=== PATIENT | female | born 1995 | race Caucasian/White ===

== ENCOUNTER 2017-02-07 00:55 | Emergency (ER) | payer BC ==
[~2017-02-07] VITALS: Ht 162.6 cm; Wt 83.9 kg
[2017-02-07 01:00] VITALS: BP 136/82
--- NOTE | 2017-02-07 01:57 | NUR ---
22Y/F PRESENTS TO ER C/O N/V/D SINCE 8PM YESTERDAY. NKA, NO PMH. PT STATES HE HAS CONTROL IMPLANT IN ARM. NO VOMITING NOTED SINCE IN ER BED, ABD IS ROUND, SOFT, TENDER TO UPPER QUADRANTS, ACTIVE BS X4. PT DENIES NEW FOODS IN DIET. MOTHER STATES SHE CALLED NURSE LINE AND WAS ADVISED TO COME TO ER FOR FLUIDS. PT HAS WARM, DRY, PINK SKIN, MOIST MUCUS MEMBRANES. PT IN BED, MOTHER AT BEDSIDE, ER MD AWARE OF PT STATUS.
[2017-02-07] MEDS ORDERED: NACL 0.9% 1,000 ML IV ONE (02:30)
[2017-02-07] MEDS ORDERED: ONDANSETRON 4 MG/2 ML VIAL IVP ONE (02:30)
[2017-02-07] MEDS ORDERED: KETOROLAC 30 MG/ML VIAL IVP ONE (02:30)
[2017-02-07 04:08] VITALS: BP 112/60
--- NOTE | 2017-02-07 04:09 | NUR ---
Patient discharged with v/s stable. Written and verbal after care instructions given and explained. Patient alert, oriented and verbalized understanding of instructions. Ambulatory with steady gait. All questions addressed prior to discharge. ID band removed. Patient advised to follow up with PMD. Opportunity to ask questions provided and answered.
== END 2017-02-07 04:09 | disposition home or self-care (01) ==
LOC: MED 00:55
DX: A08.4 Viral intestinal infection, unspecified (principal); E86.0 Dehydration
CPT/HCPCS: 96361; 96374; 96375; 99284; J1885; J2405; J7030

== ENCOUNTER 2023-07-02 18:46 | Emergency (ER) | payer BC, OTHER ==
[~2023-07-02] VITALS: Ht 160 cm; Wt 86.2 kg
[2023-07-02 18:54] VITALS: BP 126/59; PULSE 112; RESP 18; TEMP 98.3; O2SAT 98
[2023-07-02 19:44] LABS: BASOPHILS % (AUTO) 0.3 % (0.0-2.0); EOSINOPHILS % (AUTO) 0.2 % (0.0-4.0); HEMATOCRIT 40.8 % (36-48); HEMOGLOBIN 14.1 g/dL (12.0-16.0); LYMPHOCYTES # (AUTO) 0.8 K/uL (2.5-16.5); LYMPHOCYTES % (AUTO) 4.6 % (20.5-51.1); MEAN CORPUSCULAR HEMOGLOBIN 32 pg (27-31); MEAN CORPUSCULAR HGB CONC 35 g/dL (33-37); MEAN CORPUSCULAR VOLUME 93.6 fL (80-94); MONOCYTES # (AUTO) 0.9 K/uL (0.8-1.0); MONOCYTES % (AUTO) 4.9 % (1.7-9.3); NEUTROPHILS # (AUTO) 16.5 K/uL (1.8-7.7); PLATELET COUNT (AUTO) 344 K/uL (140-450); RED BLOOD CELL COUNT(AUTO) 4.36 MIL/uL (4.20-5.40); RED CELL DISTRIBUTION WIDTH 12.2 % (11.6-13.7); WHITE BLOOD COUNT (AUTO) 18.3 K/uL (4.8-10.8)
[2023-07-02] MEDS ORDERED: ALUMINUM HYD/MAG/SIMETHICONE 30 ML UDC ONE ×2 (19:47→19:49)
[2023-07-02] MEDS ORDERED: DICYCLOMINE HCL LIQUID 10 MG/5 ML UDC ONE ×2 (19:48→19:50)
[2023-07-02] MEDS: NACL 0.9% 1,000 ML IV ONE (19:54)
[2023-07-02] MEDS: DICYCLOMINE HCL LIQUID 20 MG, ALUMINUM HYD/MAG/SIMETHICONE 30 ML, LIDOCAINE VISCOUS 2% ... PO ONE (19:54)
[2023-07-02] MEDS: ONDANSETRON 4 MG/2 ML VIAL IVP ONE (19:54)
[2023-07-02 19:56] VITALS: BP 122/59; PULSE 100; RESP 18; TEMP 98.3
[2023-07-02 19:57] VITALS: O2SAT 98
[2023-07-02 20:11] LABS: ALBUMIN 4.1 g/dL (3.4-5.0); ANION GAP 11.9 (8-16); CALCIUM 8.6 mg/dL (8.5-10.1); CREATININE 0.8 mg/dL (0.6-1.3); POTASSIUM 3.9 mmol/L (3.5-5.1); TOTAL BILIRUBIN 0.7 mg/dL (0.0-1.0); TOTAL PROTEIN, SERUM 7.8 g/dL (6.4-8.2)
[2023-07-02] MEDS ORDERED: ONDA-188 PO (21:14)
[2023-07-02] MEDS ORDERED: FAMO-90 PO (21:14)
[2023-07-02] MEDS ORDERED: BISM262C53 PO (21:14)
[2023-07-02] MEDS ORDERED: MAG355OR2 PO (21:14)
== END 2023-07-02 21:21 | disposition home or self-care (01) ==
LOC: MED 18:46
DX: K52.9 Noninfective gastroenteritis and colitis, unspecified (principal); D72.829 Elevated white blood cell count, unspecified; Z79.899 Other long term (current) drug therapy
CPT/HCPCS: 36415; 80053; 81002; 81025; 83690; 85025; 96361; 96374; 99283; J2405; J7030